=== PATIENT | female | born 1990 | race African-American/Black ===

== ENCOUNTER 2017-12-02 13:52 | Emergency (ER) | payer OTHER ==
[~2017-12-02] VITALS: Ht 167.6 cm; Wt 82.0 kg
[~2017-12-02 13:52] MED LIST: CYCL5TAB PO; NAPR550 PO; Z.0.NO CURRENT MEDS
[2017-12-02 13:54] VITALS: BP 135/90; PULSE 105; RESP 26; TEMP 98.5; O2SAT 100
--- NOTE | 2017-12-02 14:24 | RADRPT ---
EXAM DATE/TIME: 12/02/2017 14:14 [place] COMPARISON: No previous studies available for comparison. INDICATIONS : Chest pain. MEDICAL HISTORY : None. SURGICAL HISTORY : None. ENCOUNTER: Initial ACUITY: 1 day PAIN SCORE: 10 LOCATION: Bilateral chest FINDINGS: A single view of the chest demonstrates the lungs to be symmetrically aerated without evidence of mas s, infiltrate or effusion. The cardiomediastinal contours are unremarkable. Osseous structures are intact. CONCLUSION: 1. No acute cardiopulmonary disease. Darrian Penaloza MD on December 02, 2017 at 14:20 Board Certified Radiologist. This report was verified electronically.
[2017-12-02 14:40] LABS: AUTOMATED NEUTROPHIL # 1.7 TH/MM3 (1.8-7.7); BASOPHIL # 0.1 TH/MM3 (0-0.2); BASOPHIL % 1.4 % (0.0-2.0); EOSINOPHIL # 0.1 TH/MM3 (0-0.4); HEMATOCRIT 31.5 % (35.0-46.0); HEMOGLOBIN 9.8 GM/DL (11.6-15.3); LYMPH % 34.2 % (9.0-44.0); LYMPHOCYTE # 1.3 TH/MM3 (1.0-4.8); MEAN CELL VOLUME 66.5 FL (80.0-100.0); MEAN CORPUSCULAR HEMOGLOBIN 20.8 PG (27.0-34.0); MEAN CORPUSCULAR HGB CONC 31.3 % (32.0-36.0); MEAN PLATELET VOLUME 9.1 FL (7.0-11.0); MONO % 15.3 % (0.0-8.0); MONOCYTE # 0.6 TH/MM3 (0-0.9); NEUT % 46.1 % (16.0-70.0); PLATELET COUNT 322 TH/MM3 (150-450); RED BLOOD COUNT 4.74 MIL/MM3 (4.00-5.30); RED CELL DISTRIBUTION WIDTH 20.4 % (11.6-17.2); WHITE BLOOD COUNT 3.7 TH/MM3 (4.0-11.0)
[2017-12-02 14:48] LABS: BICARBONATE 27.3 MEQ/L (21.0-32.0); BLOOD UREA NITROGEN 10 MG/DL (7-18); CHLORIDE 104 MEQ/L (98-107); GLOMERULAR FILTRATION RATE 90 ML/MIN (>89); GLUCOSE,RANDOM 66 MG/DL (74-106); SODIUM (NA) 139 MEQ/L (136-145)
[2017-12-02 14:52] LABS: TROPONIN I LESS THAN 0.02 NG/ML (0.02-0.05)
[2017-12-02 15:21] VITALS: BP 129/76; PULSE 83; RESP 18; O2SAT 100
--- NOTE | 2017-12-02 15:21 | PD ---
HPI Chief Complaint: Chest Pain Time Seen by Provider: 15:02 Travel History International Travel<30 days: No Contact w/Intl Traveler<30days: No Traveled to known affect area: No History of Present Illness HPI 27-year-old woman who presents to the emergency department complaining of left shoulder and back pain radiating to the mid chest. States symptoms started about an hour or so ago. She has never had them before. She was at work when the symptoms started. She has had increase in her allergy symptoms recently, mostly in the morning. No recent URI symptoms. No history of DVT or PE. She is not on any control. No recent long trips. No leg swelling or calf pain. History Past Medical History Medical History: Denies Significant Hx Social History Tobacco Use: No Allergies-Medications (Allergen,Severity, Reaction): Coded Allergies: No Known Allergies (Unverified , 12/02/17) Review of Systems Except as stated in HPI: all other systems reviewed are Neg Physical Exam Narrative GENERAL: Well-appearing 27-year-old woman, no acute distress. SKIN: Focused skin assessment warm/dry. HEAD: Atraumatic. Normocephalic. EYES: Pupils equal and round. No scleral icterus. No injection or drainage. ENT: No nasal bleeding or discharge. Mucous membranes pink and moist. NECK: Trachea midline. No JVD. CARDIOVASCULAR: Regular rate and rhythm. No murmur appreciated. RESPIRATORY: No accessory muscle use. Clear to auscultation. Breath sounds equal bilaterally. GASTROINTESTINAL: Abdomen soft, non-tender, nondistended. Hepatic and splenic margins not palpable. MUSCULOSKELETAL: No obvious deformities. No clubbing. No cyanosis. No edema. No calf tenderness. NEUROLOGICAL: Awake and alert. No obvious cranial nerve deficits. Motor grossly within normal limits. Normal speech. PSYCHIATRIC: Appropriate mood and affect; insight and judgment normal. Data Data Last Documented VS Vital Signs Date Time Temp Pulse Resp B/P (MAP) Pulse Ox O2 Delivery O2 Flow Rate FiO2 12/02/17 13:54 98.5 105 26 135/90 (105) 100 Room Air Orders Orders Electrocardiogram (12/02/17 14:00) Complete Blood Count With Diff (12/02/17 14:00) Basic Metabolic Panel (Bmp) (12/02/17 14:00) Ckmb (Isoenzyme) Profile (12/02/17 14:00) Troponin I (12/02/17 14:00) Chest, Single Ap (12/02/17 14:00) CKMB (12/02/17 14:05) CKMB% (12/02/17 14:05) Labs Laboratory Tests Test 12/02/17 14:05 White Blood Count 3.7 TH/MM3 Red Blood Count 4.74 MIL/MM3 Hemoglobin 9.8 GM/DL Hematocrit 31.5 % Mean Corpuscular Volume 66.5 FL Mean Corpuscular Hemoglobin 20.8 PG Mean Corpuscular Hemoglobin Concent 31.3 % Red Cell Distribution Width 20.4 % Platelet Count 322 TH/MM3 Mean Platelet Volume 9.1 FL Neutrophils (%) (Auto) 46.1 % Lymphocytes (%) (Auto) 34.2 % Monocytes (%) (Auto) 15.3 % Eosinophils (%) (Auto) 3.0 % Basophils (%) (Auto) 1.4 % Neutrophils # (Auto) 1.7 TH/MM3 Lymphocytes # (Auto) 1.3 TH/MM3 Monocytes # (Auto) 0.6 TH/MM3 Eosinophils # (Auto) 0.1 TH/MM3 Basophils # (Auto) 0.1 TH/MM3 CBC Comment DIFF FINAL Differential Comment Blood Urea Nitrogen 10 MG/DL Creatinine 0.90 MG/DL Random Glucose 66 MG/DL Calcium Level 9.0 MG/DL Sodium Level 139 MEQ/L Potassium Level 3.7 MEQ/L Chloride Level 104 MEQ/L Carbon Dioxide Level 27.3 MEQ/L Anion Gap 8 MEQ/L Estimat Glomerular Filtration Rate 90 ML/MIN Total Creatine Kinase 118 U/L Creatine Kinase MB LESS THAN 0.5 NG/ML Troponin I LESS THAN 0.02 NG/ML [facility] Medical Decision Making Medical Screen Exam Complete: Yes Emergency Medical Condition: Yes Interpretation(s) My review of EKG: Normal sinus rhythm at a rate of 80, normal axis, normal intervals, no acute ischemia. CBC is remarkable for mild anemia with microcytic indices. Troponin negative. BMP unremarkable. Chest x-ray: Negative. Differential Diagnosis Anxiety, PE, ACS, chest wall strain or pain, shoulder injury, other Narrative Course Medical decision making. As well 27-year-old woman presents to the emergency department with left-sided shoulder and back pain that radiates into the mid chest. Symptoms seem to be completely related to chest wall palpation or movement of the left arm. I do not see any convincing evidence of PE. No history of factors to suggest dissection or other more sinister disease. Very low risk for ACS. At this point recommend supportive treatment for likely musculoskeletal chest wall/left shoulder pain. Diagnosis Primary Impression: Left shoulder pain Additional Impression: Chest pain Patient Instructions: General Instructions Additional Instructions: Follow-up with your primary doctor in the next 2-4 days. Take ibuprofen or Aleve as needed for pain. Return to the emergency department for any new or worsening symptoms. Med/Other Pt SpecificInfo: No Change to Meds Disposition: 01 DISCHARGE HOME Condition: Stable Paul Hunt MD Dec 02, 2017 15:21
--- NOTE | 2017-12-02 15:31 | PD ---
Data Data Last Documented VS Vital Signs Date Time Temp Pulse Resp B/P (MAP) Pulse Ox O2 Delivery O2 Flow Rate FiO2 12/02/17 15:21 83 18 129/76 (93) 100 Room Air 12/02/17 13:54 98.5 Orders Orders Electrocardiogram (12/02/17 14:00) Complete Blood Count With Diff (12/02/17 14:00) Basic Metabolic Panel (Bmp) (12/02/17 14:00) Ckmb (Isoenzyme) Profile (12/02/17 14:00) Troponin I (12/02/17 14:00) Chest, Single Ap (12/02/17 14:00) CKMB (12/02/17 14:05) CKMB% (12/02/17 14:05) Ed Discharge Order (12/02/17 15:22) Labs Laboratory Tests Test 12/02/17 14:05 White Blood Count 3.7 TH/MM3 Red Blood Count 4.74 MIL/MM3 Hemoglobin 9.8 GM/DL Hematocrit 31.5 % Mean Corpuscular Volume 66.5 FL Mean Corpuscular Hemoglobin 20.8 PG Mean Corpuscular Hemoglobin Concent 31.3 % Red Cell Distribution Width 20.4 % Platelet Count 322 TH/MM3 Mean Platelet Volume 9.1 FL Neutrophils (%) (Auto) 46.1 % Lymphocytes (%) (Auto) 34.2 % Monocytes (%) (Auto) 15.3 % Eosinophils (%) (Auto) 3.0 % Basophils (%) (Auto) 1.4 % Neutrophils # (Auto) 1.7 TH/MM3 Lymphocytes # (Auto) 1.3 TH/MM3 Monocytes # (Auto) 0.6 TH/MM3 Eosinophils # (Auto) 0.1 TH/MM3 Basophils # (Auto) 0.1 TH/MM3 CBC Comment DIFF FINAL Differential Comment Blood Urea Nitrogen 10 MG/DL Creatinine 0.90 MG/DL Random Glucose 66 MG/DL Calcium Level 9.0 MG/DL Sodium Level 139 MEQ/L Potassium Level 3.7 MEQ/L Chloride Level 104 MEQ/L Carbon Dioxide Level 27.3 MEQ/L Anion Gap 8 MEQ/L Estimat Glomerular Filtration Rate 90 ML/MIN Total Creatine Kinase 118 U/L Creatine Kinase MB LESS THAN 0.5 NG/ML Troponin I LESS THAN 0.02 NG/ML [facility] Supervised Visit with [facility]: No Diagnosis Primary Impression: Left shoulder pain Additional Impression: Chest pain Patient Instructions: General Instructions Departure Forms: Tests/Procedures, Work Release Enter return to work date: Dec 04, 2017 Additional Instruction: Follow-up with your primary doctor in the next 2-4 days. Take ibuprofen or Aleve as needed for pain. Return to the emergency department for any new or worsening symptoms. Disposition: 01 DISCHARGE HOME Condition: Stable Paul Hunt MD Dec 02, 2017 15:31
[2017-12-02 15:47] VITALS: BP 126/69
--- NOTE | 2017-12-03 12:59 | EKG ---
Date Performed: 12/02/2017 Time Performed: 14:00:47 PTAGE: 27 years EKG: Sinus rhythm NORMAL ECG NO PREVIOUS TRACING DOCTOR: Cristo Izaguirre Interpretating Date/Time 12/03/2017 12:59:02
== END 2017-12-02 15:51 | disposition home or self-care (01) ==
LOC: NEPE 13:52 → MERGE 13:52 → NEPE 15:51
DX: M25.512 Pain in left shoulder (principal); R07.9 Chest pain, unspecified
CPT/HCPCS: 71045; 80048; 82550; 82552; 84484; 85025; 93005